=== PATIENT | male | born 1975 | race Caucasian/White ===

== ENCOUNTER 2022-09-02 06:47 | Emergency (ER) | payer MEDICAID ==
[~2022-09-02] VITALS: Ht 170.2 cm; Wt 70.5 kg
[2022-09-02 06:48] VITALS: BP 114/75
== END 2022-09-02 07:58 | disposition home or self-care (01) ==
LOC: ER 06:48
DX: K40.90 Unilateral inguinal hernia, without obstruction or gangrene, not specified as recurrent (principal)
CPT/HCPCS: 99281